=== PATIENT | female | born 1985 | race Caucasian/White ===

== ENCOUNTER 2025-11-11 10:39 | Emergency (ER) | payer OTHER ==
[~2025-11-11] VITALS: Ht 149.9 cm; Wt 75.8 kg
[2025-11-11] MEDS ORDERED: Ketorolac Tromethamine 30mg Vial IM ONE (11:20)
[2025-11-11] MEDS ORDERED: Ondansetron 4 MG SoluTab SL ONE (11:20)
[2025-11-11 12:01] LABS: Calcium, Ionized (POC) 1.17 mmol/L (1.10-1.46); Chloride (POC) 103 mmol/L (98-108); Creatinine (POC) 0.5 mg/dL (0.6-1.0); Glucose (ISTAT POC) 97 mg/dL (70-99); Hematocrit (POC) 35.0 % (36.0-46.0); Hemoglobin (POC) 11.9 g/dL (12.0-16.0); Potassium (POC) 4.2 mmol/L (3.5-5.5); Sodium (POC) 137 mmol/L (135-148); Total CO2 (POC) 22 mmol/L (21-32)
== END 2025-11-11 12:18 | disposition home or self-care (01) ==
LOC: ER 10:39
PROVIDERS: Physician Assistant
DX: R51.9 Headache, unspecified (principal); Z88.0 Allergy status to penicillin
CPT/HCPCS: 80047; 85014; 96372; 99283-25; A9270; J1885